=== PATIENT | female | born 1965 | race Caucasian/White ===

== ENCOUNTER → 2018-01-27 | Day surgery (SDC) | payer BC, OTHER ==
[2018-01-16 08:16] VITALS: BMI 47.0
--- NOTE | 2018-01-16 08:45 | PAT Medication Instructions ---
Service Date Jan 16, 2018. Current Home Medication List Amlodipine (Norvasc), 5 MG PO QPM Betamethasone Dip (Betamethasone Dipropionat), 1 APPLN TOP QD PRN for skin irritation Lisinopril/Hctz (Zestoretic 20MG/12.5MG), 1 TAB PO QPM Metformin HCl (Metformin HCl), 1 TAB PO BID Medication Instructions For Your Scheduled Surgery - Hold the following medications 24 hours prior to surgery: Betamethasone Dip (Betamethasone Dipropionat), 1 APPLN TOP QD PRN for skin irritation Lisinopril/Hctz (Zestoretic 20MG/12.5MG), 1 TAB PO QPM - Take the following medications as scheduled the night before surgery: Amlodipine (Norvasc), 5 MG PO QPM Metformin HCl (Metformin HCl), 1 TAB PO BID If you have any questions please call us at [phone] or [phone] or [phone]
[~2018-01-27] VITALS: Ht 162.6 cm; Wt 123.4 kg
[~2018-01-27] MED LIST: AMLO-110 PO; ATROPINE SULFATE 0.1 MG/ML 5ML SYR IV PRN; BUPIVACAINE 0.5 % 5 MG/1 ML MPF 30ML VIAL ONE; CEFAZOLIN 3000MG IV PUSH 22.5 ML IV SCH; CEFAZOLIN SOD 1 GM VIAL ONE; CHECK SCOPOLAMINE PATCH PLACEMENT SCH; DEXAMETHASONE SOD INJ 4 MG/ML VIAL ONE; DPRSCR15 TOP; EpHEDrine SULFATE INJ 50 MG/ML AMP IV PRN; FENTANYL CITRATE INJ 50 MCG/1 ML 2 ML VIAL ONE; FLUMAZENIL 0.1 MG/1 ML 10 ML VIAL IV PRN; GLC500 PO; GLYCOPYRROLATE INJ 0.2 MG/ML VIAL ONE; HEPARIN SOD (PORCINE) 1000 UNIT/ML 10 ML VIAL ONE; HYDROmorphone INJ 2 MG/ML SYR/VIAL IV PRN; KETOROLAC TROMETHAMINE 30 MG/ML VIAL ONE; LABETALOL HCL IV 5 MG/ML 20ML IV PRN; LACTATED RINGER'S 1000ML 1,000 ML IV SCH; LIDOCAINE HCL 2% 2 ML VIAL (20MG/ML) ONE; LISI-787 PO; MEPERIDINE HCL 25 MG/ML CARP IV PRN; MIDAZOLAM HCL 1 MG/ML 2ML VIAL ONE; MoRPHine SULFATE 4 MG/ML 1 ML CARP\\VIAL IV PRN; NALOXONE HCL 0.4 MG/1 ML VIAL/CARP IV PRN; NEOSTIGMINE METHYLSULFATE 5 MG/5 ML SYR ONE; ONDANSETRON INJ 2 MG/ML 2 ML VIAL IV PRN; ONDANSETRON INJ 2 MG/ML 2 ML VIAL ONE; OXYCODONE/ACETAMINOPHEN 5-325 TAB PO PRN; PHENYLEPHRINE 100MCG/ML 5ML SYR IV PRN; PROPOFOL IV EMULSION 10 MG/ML 20 ML VIAL IV ONE; ROCURONIUM BROMIDE 10 MG/ML 5 ML VIAL IV ONE; SCOPOLAMINE 1.5 MG TDSY TD SCH; SODIUM CHLORIDE 0.9% 1000ML 1,000 ML IV SCH
[2018-01-27 05:45] VITALS: BP 152/85; PULSE 80; TEMP 36.9; O2SAT 98; Ht 162.6 cm; Wt 123.4 kg
--- NOTE | 2018-01-27 06:45 | History & Physical Bridge Note ---
H&P Re-Evaluation Bridge Note: I have examined the patient, reviewed the History & Physical and in the interval since the performance of the History & Physical I have noted the following changes of clinical significance: No changes noted
--- NOTE | 2018-01-27 08:36 | [facility] Post Operative Brief Note ---
Immediate Operative Summary Operative Date Jan 27, 2018. Pre-Operative Diagnosis Cholecystitis Post-Operative Diagnosis Same Procedure(s) Performed Laparoscopic Cholecystectomy Surgeon Dr Hilario Area Sales Manager Surgeon(s) Gill Light PA-C Estimated Blood Loss 10ml Findings Consistent with Post-Op Diagnosis Specimens A. Gallbladder Drains None Anesthesia Type General Complication(s) none Disposition Disposition: Recovery Room / PACU
--- NOTE | 2018-01-27 08:38 | Discharge Instructions ---
Discharge Instructions Date of Service Jan 27, 2018. Admission Reason for Admission: Right Upper Quadrant Pain Discharge Discharge Diagnosis / Problem: Same Discharge Goals Goal(s): Decrease discomfort Activity Recommendations Activity Limitations: per Instructions/Follow-up section Lifting Limitations: no more than 10 pounds (for 2 weeks) Shower/Bathe: tomorrow (showwer only) . Instructions / Follow-Up Instructions / Follow-Up Post-Surgical ~ Discharge Instructions Activity Recommendations: - lifting limitation: (10 pounds for 2 weeks), - exercise/sex/sports limit: (nonstrenuous for 2 weeks), - driving or machine use limit: (none for 1 week), - Shower/bathe limit: (may shower beginning tomorrow) Diet: - Resume previous diet SPECIAL CARE INSTRUCTIONS: - May shower in 24 hours. Let water run over area and pat dry. - Leave steri strips on for one week. - Call the surgeon's office with any questions or concerns - - (ex. temperature higher than 101 degrees F, excessive bleeding or pain). MEDICATIONS: - Resume previous medications unless instructed otherwise by your surgeon. - Ibuprofen 600 mg every 6 hours with food - Percocet 1 every 4 hours, as needed for pain FOLLOW UP VISIT: - If not already scheduled, please call the office to schedule a two week follow-up appointment. Office number Current Hospital Diet Patient's current hospital diet: Discharge Diet Recommended Diet: Regular Diet Procedures Procedures Performed: Laparoscopic Cholecystectomy Pending Studies Studies pending at discharge: yes List of pending studies: Pathology Medical Emergencies . Who to Call and When: Medical Emergencies: If at any time you feel your situation is an emergency, please call 911 immediately. . Non-Emergent Contact Non-Emergency issues call your: Primary Care Provider, Surgeon Call Non-Emergent contact if: your pain is worsening, wound has increased redness, wound has increased pain . "Provider Documentation" section prepared by Serafin Hilario. .
[2018-01-27] MEDS: FENTANYL CITRATE INJ 50 MCG/1 ML 2 ML VIAL IV PRN ×2 (09:15→09:20)
--- NOTE | 2018-01-27 09:40 | Anesthesiology Progress Note ---
Anesthesia Post Op Note Date & Time Jan 27, 2018 at 09:40 Vital Signs Pain Intensity: 2 Vital Signs Past 12 Hours Date Time Temp Pulse Resp B/P (MAP) Pulse Ox O2 Delivery O2 Flow Rate FiO2 01/27/18 09:25 80 18 164/87 94 Oxymask 3 01/27/18 09:15 75 18 169/87 100 Oxymask 5 01/27/18 09:05 71 18 173/97 100 Oxymask 10 01/27/18 08:58 36.2 69 18 167/89 100 Oxymask 10 01/27/18 05:45 36.9 80 18 152/85 (107) 98 Room Air Notes Mental Status: alert / awake / arousable, participated in evaluation Pt Amnestic to Procedure: Yes Nausea / Vomiting: adequately controlled Pain: adequately controlled Airway Patency, RR, SpO2: stable & adequate BP & HR: stable & adequate Hydration State: stable & adequate Anesthetic Complications: no major complications apparent
[2018-01-27 09:55] VITALS: BP 161/78; PULSE 73; TEMP 36.8; O2SAT 94
--- NOTE | 2018-01-27 10:13 | OPERATIVE REPORT ---
DATE OF OPERATION: 01/27/2018 PREOPERATIVE DIAGNOSES: Cholelithiasis, chronic cholecystitis. POSTOPERATIVE DIAGNOSIS: Same. PROCEDURE: Laparoscopic cholecystectomy. SURGEON: Serafin Hilario MD. INSPECTOR MACHINE PARTS: Gill Light PA-C. FINDINGS: The gallbladder had multiple stones at least two of which were rather large. The gallbladder was contracted. There was 1 stone that was lodged in the neck of the gallbladder. The cystic duct was not dilated. The liver was mild to moderately enlarged, but the surface was smooth. The visible bowel appeared normal. There was no thickening of the gallbladder wall. TECHNIQUE: The patient was given a general anesthetic and the area was prepped and draped in the usual sterile fashion. Transverse incision was made in the upper midline area, carried down through the subcutaneous tissue to the fascia which was grasped with 2 Cody clamps and incised between. The peritoneum was identified, incised, and the introducer was placed bluntly. The abdomen was then insufflated to a pressure of 15 mmHg with carbon dioxide. There were adhesions of the omentum to the anterior abdominal wall in the vicinity of the umbilicus due to her previous umbilical hernia repair with mesh. The midclavicular 5 mm introducer was placed under direct vision and through that incision a scissor was passed and the adhesions of the omentum to the anterior abdominal wall were taken down using sharp dissection. This was done until we were just above the umbilicus. A transverse incision was then made above the umbilicus and under direct vision, the introducer was placed through that with ease. The camera was then passed through that introducer site and the anterior axillary introducer was placed under direct vision as well. The gallbladder was then easily identified and traction was placed superiorly. There were a lot of adhesions of the omentum to the gallbladder wall which were taken down using cautery and blunt dissection where appropriate. This was done until the infundibulum was exposed. I was then able to grasp some of the infundibulum and neck and dislodge the stone up into the gallbladder, so I could grasp it. The peritoneum around the infundibulum was thickened as were some of the lymphatics. This was taken down and opened first on the lateral side of the infundibulum and the lateral side was then dissected away from the liver working up towards the body. I then performed a similar dissection opening the triangle of Calot and the infundibulum away from the liver on that side. That allowed better mobility. I then had to carefully take down the thickened peritoneum and fatty tissue first on the medial side and then the lateral side which did expose the cystic duct. Further tissue were dissected away from the cystic duct on the medial side. I was then able to establish a plane behind the cystic duct. Further dissection in the triangle of Calot of fatty tissue and thickened lymphatics confirmed that this was the cystic duct and I was able to identify with confidence the cystic duct gallbladder junction. Three clips were placed on the proximal cystic duct, one near the gallbladder and the duct was divided. The infundibulum and neck were then elevated and I worked posterior to that again with thickened tissue that had to be taken down very carefully. There was a thickened lymphatic that was isolated, clamped and divided. That allowed better mobility as I dissected the body away from the liver on the lateral and medial sides, which allowed me to elevate the gallbladder away and with further dissection of the thickened tissue behind that area, I was able to identify the cystic artery, isolate it, clamp it twice proximally and once near the gallbladder and divided. There was 1 other small little arterial branch that required clipping as well. Once that was divided, then the attachments were more flimsy and less thick. I was then able to complete dissection of the gallbladder away from the liver using electrocautery. Gallbladder was placed into an Endobag and brought out through the upper midline incision where I had to open the bag to open the gallbladder and remove the stones in order to extract the gallbladder inside the bag and that was accomplished. Then introducer was replaced and the liver edge was elevated. At that point, the small branch was identified and clipped. he subdiaphragmatic and subhepatic spaces were irrigated and the irrigation removed. The gallbladder bed of the liver was inspected and there was no bleeding. Previously placed clips were inspected and were intact. The gas was allowed to escape and the introducers were removed. The fascia of the supraumbilical and upper midline introducer sites was closed with interrupted 0 Vicryl and the skin of all the incisions was closed with 4-0 Monocryl in either an interrupted or running subcuticular fashion. The skin was anesthetized with 0.5% Marcaine. The skin was cleansed, dried, benzoin placed, Steri-Strips applied. Estimated blood loss was 10 mL. Sponge, needle and instrument counts were correct prior to closure. The patient tolerated the surgical procedure without complication and was transferred to recovery. I attest to the content of the Intraoperative Record and any orders documented therein. Any exception s are noted below.
[2018-01-27 10:25] VITALS: BP 161/78; PULSE 75; O2SAT 95
[2018-01-27 10:55] VITALS: BP 138/71; PULSE 70; TEMP 36.2; O2SAT 95
[2018-01-27 11:55] VITALS: BP 138/71; PULSE 70; TEMP 36.6; O2SAT 95
== END | disposition home or self-care (01) ==
LOC: C.ACU 05:10
PROVIDERS: ATTEND Surgery
DX: K80.10 Calculus of gallbladder with chronic cholecystitis without obstruction (principal); G47.33 Obstructive sleep apnea (adult) (pediatric); I10 Essential (primary) hypertension; E11.9 Type 2 diabetes mellitus without complications; E66.9 Obesity, unspecified; Z68.42 Body mass index [BMI] 45.0-49.9, adult; Z99.89 Dependence on other enabling machines and devices; Z85.820 Personal history of malignant melanoma of skin; Z83.3 Family history of diabetes mellitus; Z82.49 Family history of ischemic heart disease and other diseases of the circulatory system; Z81.8 Family history of other mental and behavioral disorders